=== PATIENT | male | born 1970 | race Hispanic/Latino ===

== ENCOUNTER 2018-11-13 17:01 | Emergency (ER) | payer BC ==
[2018-11-13 17:06] VITALS: TEMP 97.4
[2018-11-13] MEDS ORDERED: Sodium Chloride 0.9% 1,000 ML IV STA ×2 (17:49→19:38)
--- NOTE | 2018-11-13 17:52 | ED PDOC ---
Syncope/Near Syncope/Dizziness Time Seen by Provider: 11/13/18 17:50 Chief Complaint (Nursing): Dizziness/Lightheaded Chief Complaint (Provider): dizziness History Per: Patient (48 y/o male here with near syncope x 3 episodes today. Denies any headache/chest pain/abdominal pain. No fevers/chills/uri/cough.) Past Medical History Reviewed: Historical Data, Nursing Documentation, Vital Signs Vital Signs: Last Vital Signs Temp 97.4 F L 11/13/18 17:03 Pulse 99 H 11/13/18 17:03 Resp 16 11/13/18 17:03 BP 140/84 11/13/18 17:03 Pulse Ox 100 11/13/18 17:03 - Medical History Other PMH: hyperlipidemia - Family History Family History: States: Unknown Family Hx Other Family History: patient is adopted - Social History Current smoker - smoking cessation education provided: No (quit smoking. occasional E cig with zero nicotine) - Allergies Allergies/Adverse Reactions: Allergies Allergy/AdvReac Type Severity Reaction Status Date / Time No Known Allergies Allergy Verified 11/13/18 17:05 Review of Systems ROS Statement: Except As Marked, All Systems Reviewed And Found Negative Physical Exam - Reviewed Nursing Documentation Reviewed: Yes Vital Signs Reviewed: Yes - Physical Exam Appears: Positive for: Well, Non-toxic, No Acute Distress Head Exam: Positive for: ATRAUMATIC, NORMAL INSPECTION, NORMOCEPHALIC Skin: Positive for: Normal Color, Warm, DRY Eye Exam: Positive for: EOMI, Normal appearance, PERRL ENT: Positive for: Normal ENT Inspection Neck: Positive for: Normal, Painless ROM Cardiovascular/Chest: Positive for: Regular Rate, Rhythm Respiratory: Positive for: CNT, Normal Breath Sounds Gastrointestinal/Abdominal: Positive for: Normal Exam, Soft Back: Positive for: Normal Inspection Extremity: Positive for: Normal ROM Neurologic/Psych: Positive for: Alert, Oriented - Laboratory Results Result Diagrams: 11/13/18 17:57 11/13/18 17:57 - ECG ECG: Positive for: Viewed By Me ECG Rhythm: Positive for: Sinus Tachycardia (100bpm no ectopy no acute changes) O2 Sat by Pulse Oximetry: 100 - Progress ED Course And Treament: PATIENT IS NOT ORTHOSTATIC BY BP /PULSE BUT NOTED ELEVATED HR 100 NS 2ND LITER PLACED. STATES HE FEELS MUCH IMPROVED AFTER FIRST LITER. ON MONITOR NSR, HEART RATE NOTED 92 WHEN PROVIDER IS NOT IN THE ROOM. D/W PATIENT POSSIBLE ADMISSION FOR OBSERVATION OF SYNCOPE; PATIENT WOULD LIKE TO BE D/C HOME AND F/U WITH PMD/CARDIOLOGY. Disposition - Clinical Impression Clinical Impression: Near syncope - Patient ED Disposition Is Patient to be Admitted: No - Disposition Referrals: Carlos Fraire MD [Staff Provider] - Disposition: Routine/Home Disposition Time: 20:00 Condition: FAIR Instructions: Near Fainting (DC) Forms: [facility] ED School/Work Excuse
[2018-11-13 18:04] LABS: BASO # 0.1 K/uL (0.0-0.2); BASO % 0.7 % (0.0-2.0); EOS # 0.1 K/uL (0.0-0.7); HEMOGLOBIN 13.5 g/dL (12.0-18.0); LYMPH # 1.2 K/uL (1.0-4.3); LYMPH % 15.3 % (20.0-40.0); MEAN CELL VOLUME 88.6 fl (80.0-94.0); MEAN CORPUSCULAR HEMOGLOBIN 29.2 pg (27.0-31.0); MEAN PLATELET VOLUME 8.1 fl (7.2-11.7); MONO # 0.4 K/uL (0.0-0.8); NEUT # 6.4 K/uL (1.8-7.0); RBC 4.64 Mil/uL (4.40-5.90); RED CELL DISTRIBUTION WIDTH 13.4 % (11.5-14.5); WHITE BLOOD COUNT 8.2 K/uL (4.8-10.8)
[2018-11-13 18:12] LABS: ALB/GLOB RATIO 1.4 (1.0-2.1); ALBUMIN 4.3 g/dL (3.5-5.0); ALT/SGPT 35 U/L (21-72); AST/SGOT 29 U/L (17-59); BLOOD UREA NITROGEN 16 mg/dl (9-20); CALCIUM 9.6 mg/dL (8.4-10.2); GFR NON-AFRICAN AMERICAN > 60
[2018-11-13 21:01] VITALS: BP 119/65; PULSE 90; RESP 14; O2SAT 98
--- NOTE | 2018-11-14 15:05 | CT ---
Date of service: 11/13/2018 PROCEDURE: CT HEAD WITHOUT CONTRAST. HISTORY: near syncope COMPARISON: None available. TECHNIQUE: Axial computed tomography images were obtained through the head/brain without intravenous contrast. Radiation dose: Total exam DLP = 827.23 mGy-cm. This CT exam was performed using one or more of the following dose reduction techniques: Automated exposure control, adjustment of the mA and/or kV according to patient size, and/or use of iterative reconstruction technique. FINDINGS: HEMORRHAGE: No intracranial hemorrhage. BRAIN: Normal demarco-white matter differentiation and density are appreciated throughout the cerebrum and cerebellum with the brainstem appearing unremarkable as well. There is no mass effect. There is no suspicious extra-axial fluid collection and the midline brain anatomy appears diffusely unremarkable. VENTRICLES: Unremarkable. No hydrocephalus. CALVARIUM: Unremarkable. PARANASAL SINUSES: Unremarkable as visualized. No significant inflammatory changes. MASTOID AIR CELLS: Unremarkable as visualized. No inflammatory changes. OTHER FINDINGS: None. IMPRESSION: Unremarkable noncontrast head CT. Concordant preliminary report from ANIS[facility], 11/13/2018 6:08 p.m..
--- NOTE | 2018-11-14 18:59 | CARD ---
APPROVED REPORT Date of service: 11/13/2018 EKG Measurement Heart [id number] <Conclusion> Normal sinus rhythm Normal ECG
== END 2018-11-13 21:01 | disposition home or self-care (01) ==
LOC: H.ER 17:01
DX: R55 Syncope and collapse (principal); Z87.891 Personal history of nicotine dependence
CPT/HCPCS: 70450; 80053; 82948; 83735; 84484; 85025; 85378; 93005; 96360; 99285; J7030